=== PATIENT | male | born 1995 | race Caucasian/White ===

== ENCOUNTER 2016-10-04 12:33 | Emergency (ER) | payer OTHER ==
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
[2016-10-04 13:27] LABS: CHLORIDE,CL 106 mmol/L (101-111); SODIUM,NA 139 mmol/L (135-145)
[2016-10-04 13:33] VITALS: BP 129/96
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
== END 2016-10-04 15:42 | disposition home or self-care (01) ==
LOC: DL.ED 12:33
DX: S02.2XXA Fracture of nasal bones, initial encounter for closed fracture (principal); S01.81XA Laceration without foreign body of other part of head, initial encounter; V43.53XA Car driver injured in collision with pick-up truck in traffic accident, initial encounter; Y92.415 Exit ramp or entrance ramp of street or highway as the place of occurrence of the external cause
CPT/HCPCS: 36415; 70450; 70486; 72125; 80053; 80305; 81001; 85025; 99284; G0480